=== PATIENT | female | born 1990 | race Caucasian/White ===

== ENCOUNTER 2017-03-25 13:18 | Emergency (ER) | payer BC ==
[~2017-03-25] VITALS: Ht 177.8 cm; Wt 67.3 kg
[~2017-03-25 13:18] MED LIST: NORCO 325 MG-51 TAB PO; OCELLA 3 MG-0.01 TAB PO
[2017-03-25 13:20] VITALS: BP 137/81; PULSE 70; TEMP 98.3
== END 2017-03-25 14:31 | disposition home or self-care (01) ==
LOC: COL.ER 13:18
DX: S61.210A Laceration without foreign body of right index finger without damage to nail, initial encounter (principal); J45.909 Unspecified asthma, uncomplicated; W26.8XXA Contact with other sharp object(s), not elsewhere classified, initial encounter; Y92.009 Unspecified place in unspecified non-institutional (private) residence as the place of occurrence of the external cause; Y93.G1 Activity, food preparation and clean up